=== PATIENT | male | born 1945 | race Caucasian/White ===

== ENCOUNTER 2017-06-20 10:00 | Inpatient (IN) ==
[2017-06-20] MEDS ORDERED: Ipratropium/Albuterol Neb 3 ML IH ONE (10:18)
--- NOTE | 2017-06-20 10:58 | Emergency Department Note ---
Disposition Clinical Impression: Pneumonia Disposition: Admitted As Inpatient Condition: Fair Referrals: Danis Figueroa MD [Primary Care Provider] - Forms: ED Satisfaction Letter Time of Disposition: 12:13 ([facility] JO[facility]) URI/Sore Throat HPI - General Chief Complaint: ED Upper Respiratory Infection Stated Complaint: low oxygen Time Seen by Provider: 06/20/17 10:22 Source: patient Mode of arrival: ambulatory Limitations: no limitations Nursing Notes Reviewed: Yes Vital Signs Reviewed: Yes - History of Present Illness HPI Narrative: 71-year-old male shortness of breath cough congestion fever chills at home increasing weakness patient has been having some limited questions altered mental status patient presents to the emergency room with O2 sats history of 70 % at home cough green phlegm denies blurred vision double vision loss of vision diarrhea melena hematochezia or hematemesis patient states on just getting worse I think I got pneumonia Pt Subjective Complaint: fever, cough, nasal congestion Onset (ago): day(s) (2) Duration: constant Severity: mild Severity scale (1-10): 2 Improves with: nothing Worsens with: exertion If sputum, description: yellow Associated symptoms: Reports: fever, chills, nasal congestion, cough, shortness of breath. Denies: voice changes, myalgias, diaphoresis, headache, rhinorrhea, sore throat, stiff neck, chest pain, abdominal pain, nausea, vomiting, diarrhea , dysuria, rash, ear pain Treatments prior to arrival: acetaminophen, ibuprofen - Related Data Home Medications Medication Instructions Recorded Confirmed Albuterol Sulfate [Proair HFA] 2 puff IH Q4HR PRN 08/23/15 05/21/17 Esomeprazole Magnesium [Nexium] 40 mg PO DAILY 08/23/15 05/21/17 Hydrocodone/Acetaminophen [Welcome 1 tab PO TID PRN 08/23/15 05/21/17 7.5-325 Tablet] Simvastatin [Zocor] 40 mg PO HS 08/23/15 05/21/17 Tiotropium [Spiriva] 18 mcg IH DAILY 08/23/15 05/21/17 Carvedilol [Coreg] 6.25 mg PO BIDWM 01/05/16 05/21/17 Fluticasone/Salmeterol [Advair 2 puff IN DAILY 01/05/16 05/21/17 250-50 Diskus] BuPROPion SR (12 HR) [Wellbutrin 100 mg PO BID 03/07/16 05/21/17 SR] Citalopram Hydrobromide [Celexa] 40 mg PO DAILY 03/07/16 05/21/17 Tamsulosin [Flomax] 0.4 mg PO DAILY 03/07/16 05/21/17 Tizanidine HCl [Zanaflex] 4 mg PO DAILY 03/07/16 05/21/17 Cetirizine HCl [All Day Allergy] 10 mg PO DAILY 09/26/16 05/21/17 Guaifenesin [Mucinex] 600 mg PO BID 09/26/16 05/21/17 Ipratropium/Albuterol Neb [Duoneb] 3 ml IH Q6HR 09/26/16 05/21/17 Losartan/Hydrochlorothiazide 1 each PO DAILY 09/26/16 05/21/17 [Hyzaar 100-12.5 Tablet] Montelukast [Singulair] 10 mg PO DAILY 09/26/16 05/21/17 Tizanidine HCl 2 mg PO HS 09/26/16 05/21/17 Gabapentin [Neurontin] 300 mg PO QID 05/21/17 05/21/17 Previous Rx's Medication Instructions Recorded Nicotine Patch [Nicoderm] 21 mg TD DAILY #30 patch.td24 05/21/17 Allergies Allergy/AdvReac Type Severity Reaction Status Date / Time morphine Allergy Anaphylaxis Verified 05/09/17 23:37 All systems ED: reviewed and negative except as stated. Review of Systems: As Per HPI Constitutional: Reports: fever, chills. Denies: weakness Eyes: Denies: eye pain ENT ED: Denies: ear pain Cardiovascular: Reports: dyspnea on exertion. Denies: chest pain, palpitations Respiratory: Reports: cough, dyspnea, wheezes, sputum production. Denies: hemoptysis Gastrointestinal: Denies: abdominal pain, nausea, vomiting, constipation Genitourinary: Denies: urgency, dysuria, frequency Musculoskeletal: Denies: back pain, neck pain Integumentary: Denies: rash Neurological: Reports: weakness. Denies: headache Psychiatric: Denies: anxiety Endocrine: Reports: fatigue Hematological/Lymphatic: Denies: easy bleeding Allergic/Immunologic: Denies: facial swelling URI PMH - Past Medical History Medical history: Reports: aortic aneurysm, arthritis, asthma, cancer, COPD, coronary artery disease, GERD, hyperlipidemia, hypertension, malignancy, myocardial infarction, renal disease, TIA, other Surgical history: Reports: other Psychiatric history: Reports: anxiety, depression - Social History Smoking Status: Current every day smoker Alcohol use: Reports: none Drug use: Reports: none Physical Exam - General Limitations: no limitations General appearance: alert, in no apparent distress - Head Head exam: atraumatic, normocephalic, normal inspection - Eye Eye exam: Present: normal appearance, PERRL, EOMI - ENT ENT exam: normal exam, normal oropharynx, mucous membranes moist, TM's normal bilaterally, normal external ear exam - Neck Neck exam: Present: normal inspection, full ROM, trachea midline - Chest Chest inspection: Present: normal inspection, symmetric chest wall rise - Respiratory Respiratory exam: Present: normal lung sounds bilaterally, wheezes. Absent: respiratory distress - Cardiovascular Cardiovascular exam: Present: regular rate, normal rhythm, normal heart sounds - Abdominal Exam Abdominal exam: Present: soft, Non-Tender, normal bowel sounds, mass, pulsatile mass - Extremities Exam Extremities exam: Present: normal inspection, full ROM, normal capillary refill. Absent: tenderness - Expanded Lower Extremity Exam Gait: observed and normal - Back Exam Back exam: Present: normal inspection, full ROM. Absent: muscle spasm - Neurological Exam Neurological exam: Present: alert, oriented X3, CN II-XII intact, normal gait - Psychiatric Psychiatric exam: Present: normal affect, normal mood - Skin Skin exam: Present: warm, dry, intact, normal color Course Course Narrative: Patient was seen and evaluated septic workup was done on the patient the patient at this time showing No signs of overt sepsis patient was given breathing treatments and decongestant patient showing significant improvement still continues to have sats in the low 90s as result recommendations with pneumonia and him bringing up copious amounts of phlegm at this time patient will be admitted for observation services of Dr. Jasso for antibiosis Rocephin and Zithromax started in the Vital Signs Temperature 97.0 F L 06/20/17 10:17 Pulse Rate 87 06/20/17 10:17 Respiratory Rate 16 06/20/17 10:17 Blood Pressure 92/51 06/20/17 10:17 O2 Sat by Pulse Oximetry 89 06/20/17 10:17 Temperature 97.0 F L 06/20/17 10:17 Pulse Rate 77 06/20/17 11:47 Respiratory Rate 16 06/20/17 11:47 Blood Pressure 118/76 06/20/17 11:47 O2 Sat by Pulse Oximetry 92 06/20/17 11:47 Oxygen Delivery Oxygen Delivery Nasal Cannula Upper Respiratory Infection - Differential Diagnosis Differential Diagnosis: Likely: upper respiratory infection, other viral infection, bronchitis, influenza, pneumonia - Medical Records Medical records reviewed: Yes I reviewed the patient's medical records. - Lab Data Lab results reviewed: Yes I reviewed the patient's lab results. Result diagrams: 06/20/17 10:49 06/20/17 10:49 Lab Results 06/20/17 06/20/17 06/20/17 Range/Units 10:49 10:49 10:49 WBC 11.8 H (4.3-11.1) K/mcL RBC 3.86 L (4.19-5.50) M/mcL Hgb 11.9 L (12.9-16.9) g/dL Hct 35.6 L (37.5-50.1) % MCV 92.2 (83.0-100.0) fL MCH 30.8 (28.0-33.3) pg MCHC 33.4 (31.6-35.5) g/dL RDW 14.7 H (11.5-14.5) % Plt Count 212 (140-400) K/mcL MPV 9.8 (9.4-12.4) fL Immature Gran % 0.5 (0-4) % Seg Neutrophils % 87.1 % Lymphocytes % 6.1 % Monocytes % 5.9 % Eosinophils % 0.2 % Basophils % 0.2 % Neutrophils # 10.3 H (1.6-8.9) K/mcL Lymphocytes # 0.7 (0.6-4.6) K/mcL Monocytes # 0.7 (0.0-1.3) K/mcL Eosinophils # 0.0 (0.0-0.6) K/mcL Basophils # 0.0 (0.0-0.2) K/mcL APTT 31.0 (26.0-36.0) Seconds Sodium 136 (136-145) mEq/L Potassium 4.0 (3.5-4.5) mEq/L Chloride 99 (98-109) mEq/L Carbon Dioxide 27 (19-29) mEq/L BUN 29 H (8-26) mg/dL Creatinine 1.53 H (0.72-1.25) mg/dL Est GFR ( Amer) 54 L (> 60) Est GFR (Non-Af Amer) 45 L (> 60) BUN/Creatinine Ratio 19 (6-26) Glucose 145 H (70-99) mg/dL Calculated Osmolality 290 (280-300) Calcium 9.4 (8.6-10.8) mg/dL Troponin I (0-0.03) ng/mL B-Natriuretic Peptide (0-100) pg/mL Lipase 7 L (8-78) Units/L 06/20/17 06/20/17 Range/Units 10:49 10:49 WBC (4.3-11.1) K/mcL RBC (4.19-5.50) M/mcL Hgb (12.9-16.9) g/dL Hct (37.5-50.1) % MCV (83.0-100.0) fL MCH (28.0-33.3) pg MCHC (31.6-35.5) g/dL RDW (11.5-14.5) % Plt Count (140-400) K/mcL MPV (9.4-12.4) fL Immature Gran % (0-4) % Seg Neutrophils % % Lymphocytes % % Monocytes % % Eosinophils % % Basophils % % Neutrophils # (1.6-8.9) K/mcL Lymphocytes # (0.6-4.6) K/mcL Monocytes # (0.0-1.3) K/mcL Eosinophils # (0.0-0.6) K/mcL Basophils # (0.0-0.2) K/mcL APTT (26.0-36.0) Seconds Sodium (136-145) mEq/L Potassium (3.5-4.5) mEq/L Chloride (98-109) mEq/L Carbon Dioxide (19-29) mEq/L BUN (8-26) mg/dL Creatinine (0.72-1.25) mg/dL Est GFR ( Amer) (> 60) Est GFR (Non-Af Amer) (> 60) BUN/Creatinine Ratio (6-26) Glucose (70-99) mg/dL Calculated Osmolality (280-300) Calcium (8.6-10.8) mg/dL Troponin I 0.01 (0-0.03) ng/mL B-Natriuretic Peptide 32 (0-100) pg/mL Lipase (8-78) Units/L - Radiology Data Radiology results reviewed: Yes I reviewed the patient's radiology results. ITS Impressions Chest X-Ray 06/20/17 10:17 IMPRESSION: New right greater than left bibasilar infiltrate suspicious for pneumonia. Aspiration is a consideration. D/ / Perfecto Yo MD / Perfecto Yo MD Interpreting Provider: Perfecto Yo MD - EKG Data EKG attestation: Yes I reviewed and interpreted this EKG. EKG results narrative: Sinus rhythm right bundle branch block anterior septal infarct old rate 86 AK 176 QRS 154 QT 382 access -75 Critical Care Time Critical Care Time: Yes Total Critical Care Time: 15 Attestation: Critical care performed: 15 minutes as a result of the patient being hypoxic upon presentation and improving post-aerosol and oxygen being applied to the patient patient continues to [place] low oxygen sat on 2 L despite aerosol treatments and chest x-ray showing pneumonia patient be admitted IV antibiotics Time is exclusive of separately billable procedures. Time includes: direct patient care, patient reassessment, coordination of patient care, interpretation of data (laboratory data, radiology data, and respiratory data), review of patient's medical records, medical consultation and documentation of patient care. Procedures included in critical care time: Procedures excluded from critical care time:
[2017-06-20 11:07] LABS: Basophils % 0.2 %; Eosinophils % 0.2 %; Hematocrit 35.6 % (37.5-50.1); Hemoglobin 11.9 g/dL (12.9-16.9); Immature Granulocytes % 0.5 % (0-4); Lymphocytes # 0.7 K/mcL (0.6-4.6); Lymphocytes % 6.1 %; Mean Corpuscular HGB Conc 33.4 g/dL (31.6-35.5); Mean Corpuscular Hemoglobin 30.8 pg (28.0-33.3); Mean Corpuscular Volume 92.2 fL (83.0-100.0); Mean Platelet Volume 9.8 fL (9.4-12.4); Monocytes # 0.7 K/mcL (0.0-1.3); Monocytes % 5.9 %; Neutrophils # 10.3 K/mcL (1.6-8.9); Platelet Count 212 K/mcL (140-400); Red Blood Count 3.86 M/mcL (4.19-5.50); Red Cell Distribution Width 14.7 % (11.5-14.5); Segmented Neutrophils % 87.1 %
[2017-06-20] MEDS ORDERED: Azithromycin 500 MG in D5% in Water 250 ML IVPB ONE (11:17)
[2017-06-20 11:22] LABS: Calcium 9.4 mg/dL (8.6-10.8)
[2017-06-20] MEDS ORDERED: Acetaminophen 325 MG TABLET PO PRN ×2 (13:22→13:33)
[2017-06-20] MEDS ORDERED: Ibuprofen 400 MG TABLET PO PRN ×2 (13:22→13:33)
[2017-06-20] MEDS ORDERED: *HR* HYDROcodone/Acet 7.5/325 mg TABLET PO PRN (13:22)
[2017-06-20] MEDS ORDERED: Naloxone 0.4 MG/ML INJ IVP PRN ×2 (13:22→13:33)
[2017-06-20] MEDS ORDERED: Gabapentin 300 MG CAPSULE PO SCH (13:22)
--- NOTE | 2017-06-20 14:06 | Internal Med History&Physical ---
Date of Encounter: 06/20/17 Time of Encounter: 14:06 Assessment and Plan (1) Pneumonia Current visit: Yes Status: Acute Patient is admitted with bibasilar pneumonia, right is worse than left. He has additional findings of leukocytosis, fever, hypoxia, acute confusion and comorbidities of having COPD, CAD, allergies. Blood cultures were drawn in the emergency room. They started Zithromax and Rocephin. He is requiring oxygen. Through the night he will be having his CPAP machine. Qualifiers: Pneumonia type: due to unspecified organism Laterality: bilateral Lung location: lower lobe of lung Qualified Code(s): J18.9 - Pneumonia, unspecified organism (2) COPD (chronic obstructive pulmonary disease) Current visit: Yes Status: Acute He has exacerbation of his chronic COPD with wheezing, hypoxia and acute pneumonia. He will be requiring oxygen. He will have a CPAP machine to use. Consideration for adding steroids as well. We will continue his nebulizer treatments and inhalers Qualifiers: COPD type: COPD with acute exacerbation Qualified Code(s): J44.1 - Chronic obstructive pulmonary disease with (acute) exacerbation (3) Acute kidney injury superimposed on chronic kidney disease Current visit: Yes Status: Acute He has a history chronic kidney disease now with acute kidney injury with increase in his creatinine to 1.53, this is above his typical baseline. This may be from his acute infection. May be from prerenal etiology. IV fluids will be given. Follow-up has been arranged. (4) Hypertension Current visit: Yes Status: Acute Patient has a history of hypertension. He has had relative hypotension though with blood pressure typically in the 90s. We will continue to monitor. Consideration for septicemia. Qualifiers: Hypertension type: essential hypertension Qualified Code(s): I10 - Essential (primary) hypertension (5) Coronary artery disease Current visit: Yes Status: Chronic Known coronary artery disease. Does not appear to have any chest pain/angina with this or acute EKG changes. We will monitor. Qualifiers: Coronary Disease-Associated Artery/Lesion type: [place] artery [place] vs. transplanted heart: [place] heart Associated angina: without angina Qualified Code(s): I25.10 - Atherosclerotic heart disease of [place] coronary artery without angina pectoris (6) Tobacco use Current visit: Yes Status: Chronic Chronic history of tobacco use for many years. He has decreased his use recently because of nicotine patch. We will continue with tobacco cessation. (7) Sleep apnea Current visit: Yes Status: Chronic He will use his CPAP machine at nighttime. Qualifiers: Sleep apnea type: obstructive Qualified Code(s): G47.33 - Obstructive sleep apnea (adult) (pediatric) (8) Radicular pain of right lower extremity Current visit: Yes Status: Chronic History of right lower extremity radicular pain. He has had previous back surgery. 2 weeks ago he had epidural steroid injection which was helpful. He was due to have another epidural steroid injection today but he was too ill. (9) DVT prophylaxis Current visit: Yes Status: Acute We will do DVT prophylaxis with [facility] Internal Medicine - H&P: HPI Chief complaint: reports that he is here with a lung infection Admitted From: Emergency Dept Plans for Post Hospital Care: Home History of present illness: Mr. Partida is a 71 year old male who is a smoker and has COPD, CAD, hypertension, multiple other medical problems who became ill over the past few days with cough, increased sputum production, increased respiratory rate and has become confused at times. His noted that his saturation this morning was 77% and his pulse was 120. He has also been shaking with chills. He is a long time smoker of a pack of cigarettes per day, but since using a nicotine patch over the past couple of weeks his tobacco use has become more rare. He has not had any hemoptysis. He has had no recent travel. His states that about every 6 weeks he comes down with some type of infection. No history obtainable from the patient as he has had confusion and somnolence. Information was obtained from his . Past Med Surg Social Fam HX - Past Medical History Medical history: aortic aneurysm, arthritis, asthma, cancer, COPD, coronary artery disease, GERD, hyperlipidemia, hypertension, malignancy, myocardial infarction, renal disease, TIA, other Psychiatric history: anxiety, depression - Past Surgical History Surgical History: orthopedic, other (Previous back surgery), other (Angioplasty 2005, partial nephrectomy 2004, lumbar laminectomy in 1993, abdominal aortic aneurysm endograft placement 2008, right kidney mass removed in 2016) - Social History Smoking Status: Current every day smoker Smokeless Tobacco Status: No Alcohol use: none Drug use: none - Family History Father Adopted: Yes Family Member Ethnicity: Non- Living Status: Hx Family Cardiac Disorders: Yes (self, brother,mother) Hx Family Respiratory Disorders: Yes (self, father) Hx Family Cancer: Yes (self,father,brother) Hx Family GI Disorders: Yes (self) Hx Family Endocrine Disorder: No Hx Family Neuromuscular Disorders: No Hx Family Neurologic Disorders: Yes (self,mother) Hx Family HEENT Disorders: No Hx Family Autoimmune Disorders: No Internal Medicine - H&P: Meds Albuterol Sulfate [Proair HFA] 2 puff IH Q4HR PRN 08/23/15 [History] Esomeprazole Magnesium [Nexium] 40 mg PO DAILY 08/23/15 [History] Hydrocodone/Acetaminophen [[place] 7.5-325 Tablet] 1 tab PO TID PRN 08/23/15 [ History] Simvastatin [Zocor] 40 mg PO HS 08/23/15 [History] Tiotropium [Spiriva] 18 mcg IH DAILY 08/23/15 [History] Carvedilol [Coreg] 6.25 mg PO BIDWM 01/05/16 [History] Fluticasone/Salmeterol [Advair 250-50 Diskus] 2 puff IN DAILY 01/05/16 [History] BuPROPion SR (12 HR) [Wellbutrin SR] 100 mg PO BID 03/07/16 [History] Citalopram Hydrobromide [Celexa] 40 mg PO DAILY 03/07/16 [History] Tamsulosin [Flomax] 0.4 mg PO DAILY 03/07/16 [History] Tizanidine HCl [Zanaflex] 4 mg PO DAILY 03/07/16 [History] Cetirizine HCl [All Day Allergy] 10 mg PO DAILY 09/26/16 [History] Guaifenesin [Mucinex] 600 mg PO BID 09/26/16 [History] Ipratropium/Albuterol Neb [Duoneb] 3 ml IH Q6HR 09/26/16 [History] Losartan/Hydrochlorothiazide [Hyzaar 100-12.5 Tablet] 1 each PO DAILY 09/26/16 [ History] Montelukast [Singulair] 10 mg PO DAILY 09/26/16 [History] Tizanidine HCl 2 mg PO HS 09/26/16 [History] Gabapentin [Neurontin] 300 mg PO QID 05/21/17 [History] Nicotine Patch [Nicoderm] 21 mg TD DAILY #30 patch.td24 05/21/17 [Rx] Allergies morphine Allergy (Verified 05/09/17 23:37) Anaphylaxis ROS unobtainable: due to mental status (Patient sometimes is mumbling, he is confused and disoriented and generally has his eyes closed), other (Review of systems basically obtained from his and ER records) - Constitutional Constitutional: chills, fatigue, fever(s), weakness, no night sweats - EENT Eyes: no change in vision, no discharge Ears: no ear discharge, no ear pain Nose, mouth and throat: no epistaxis, no sinus pain, no sore throat, no throat swelling - Cardiovascular Cardiovascular ROS IM: dyspnea, dyspnea on exertion, no chest pain, no irregular heart rhythm, no palpitations, no syncope - Respiratory Respiratory: cough (Sputum production increased recently no hemoptysis), dyspnea , dyspnea on exertion, wheezing, snoring, chest congestion, excessive phlegm production, change in phlegm color - Gastrointestinal Gastrointestinal: no abdominal pain, no change in stool character, no constipation, no diarrhea, no hematochezia, no melena - Genitourinary Genitourinary ROS male: no dysuria, no flank pain, no urinary frequency - Musculoskeletal Musculoskeletal ROS IM: no arthralgias, no muscle weakness Additional comments: Had recent epidural steroids for radicular pain in the right lower extremity - Integumentary Integumentary IM: no rash, no skin ulcer - Neurological Neurological ROS: confusion, radicular pain (Chronic radicular pain in the right lower extremity with burning sensation in his leg and knee area), no focal weakness, no loss of vision - Psychiatric Psychiatric: no auditory hallucinations, no visual hallucinations - Hematologic/Lymphatic Hematologic/Lymphatic: no easy bruising, no lymphadenopathy - Constitutional Vitals: Temp Pulse Resp BP Pulse Ox 98.2 F 89 16 99/62 87 06/20/17 13:22 06/20/17 13:22 06/20/17 13:41 06/20/17 13:41 06/20/17 13:22 General appearance: Present: A&O X 0, disheveled. Absent: answers questions appropriately Exam: Patient is lying at 45 degree angle. He moderately sever respiratory distress. General his eyes are closed. He cannot tell me his date or age, he can tell me his address. He thinks he has been in the hospital for 2 or 3 days, not just a few hours. I really cannot get much more information than that. He is having very impressive rigors. - Head Head exam: Present: atraumatic - Eye Eye exam: Present: EOMI. Absent: scleral icterus Pupils: Present: PERRL - ENT ENT exam: Present: mucous membranes moist, TM's normal bilaterally - Neck Neck exam general surgery: Absent: lymphadenopathy, tenderness, nuchal rigidity , thyromegaly - Respiratory Respiratory exam: Present: accessory muscle use, decreased breath sounds, prolonged expiratory phase, rhonchi Additional comments: Scattered rhonchi bilaterally. The right is worse than left. Diminished breath sounds at the bases. Audible crackles and wheezing. - Cardiovascular Cardiovascular exam: Present: distant heart sounds, RRR, +S1, +S2 - GI/Abdominal GI/Abdominal exam: Present: normal bowel sounds, soft, no peritoneal signs. Absent: firm, guarding, hepatomegaly, mass, tenderness - Extremities Exam Extremities exam: Present: normal capillary refill, warm. Absent: calf tenderness, pedal edema, tenderness Additional comments: He is having rigors involving his upper extremities - Neurological Exam Neurological exam: Present: altered (As in history of present illness), strengths equal and symetr throughout. Absent: alert, oriented X3, no focal deficits, facial droop, speech deficit Internal Med - H&P Results - Labs CBC & Chem 7: 06/20/17 10:49 06/20/17 10:49 Labs: Elevated white blood cell count. Increased creatinine above baseline. - Diagnostic Studies Chest x-ray Additional comments: Chest x-ray shows bibasilar infiltrates, right worse than left
[2017-06-20] MEDS: 0.9 % Sodium Chloride 1,000 ML IVC SCH (15:09)
[2017-06-20] MEDS ORDERED: Ipratropium/Albuterol Neb 3 ML IH SCH (16:00)
[2017-06-20] MEDS: Ipratropium/Albuterol Neb 3 ML IH SCH ×3 (17:01→23:31)
[2017-06-20] MEDS: Gabapentin 300 MG CAPSULE PO SCH ×2 (17:01→20:21)
[2017-06-20] MEDS ORDERED: Mag Hydrox/Al Hydrox/Simeth 30 ML UDC PO STA (18:05)
[2017-06-20] MEDS ORDERED: Mag Hydrox/Al Hydrox/Simeth 30 ML UDC PO PRN (19:40)
[2017-06-20] MEDS: BuPROPion SR (12 HR) 100 MG TABLET PO SCH (20:21)
[2017-06-20] MEDS: tiZANidine 4 MG TABLET PO SCH (20:22)
[2017-06-20] MEDS ORDERED: tiZANidine 4 MG TABLET PO SCH (21:00)
[2017-06-20] MEDS ORDERED: BuPROPion SR (12 HR) 100 MG TABLET PO SCH (21:00)
[2017-06-21] MEDS: 0.9 % Sodium Chloride 1,000 ML IVC SCH ×3 (04:52→20:55)
[2017-06-21] MEDS: *HR* Enoxaparin 40 MG/0.4 ML SYRINGE SQ SCH (05:08)
[2017-06-21] MEDS: Ipratropium/Albuterol Neb 3 ML IH SCH ×3 (05:10→17:45)
[2017-06-21 05:28] LABS: Basophils % 0.1 %; Eosinophils % 0.3 %; Hematocrit 31.4 % (37.5-50.1); Hemoglobin 10.3 g/dL (12.9-16.9); Immature Granulocytes % 0.9 % (0-4); Lymphocytes # 1.1 K/mcL (0.6-4.6); Lymphocytes % 11.8 %; Mean Corpuscular HGB Conc 32.8 g/dL (31.6-35.5); Mean Corpuscular Hemoglobin 30.3 pg (28.0-33.3); Mean Corpuscular Volume 92.4 fL (83.0-100.0); Mean Platelet Volume 10.1 fL (9.4-12.4); Monocytes # 0.7 K/mcL (0.0-1.3); Monocytes % 8.2 %; Platelet Count 194 K/mcL (140-400); Red Cell Distribution Width 14.9 % (11.5-14.5); Segmented Neutrophils % 78.7 %
[2017-06-21 05:30] LABS: INR 1.3; Prothrombin Time 14.3 Seconds (9.4-12.1)
[2017-06-21 05:31] LABS: Activated Partial Thrombo Time 29.4 Seconds (26.0-36.0)
[2017-06-21 05:41] LABS: Potassium 3.9 mEq/L (3.5-4.5)
[2017-06-21] MEDS: tiZANidine 4 MG TABLET PO SCH ×2 (08:50→20:58)
[2017-06-21] MEDS: Loratadine 10 MG TABLET PO SCH (08:51)
[2017-06-21] MEDS: Gabapentin 300 MG CAPSULE PO SCH ×4 (08:51→20:58)
[2017-06-21] MEDS: BuPROPion SR (12 HR) 100 MG TABLET PO SCH ×2 (08:51→20:58)
[2017-06-21] MEDS: Losartan/HCTZ 50-12.5 TABLET PO SCH (08:52)
[2017-06-21] MEDS: Nicotine 21 MG PATCH.TD24 TD SCH (08:52)
[2017-06-21] MEDS ORDERED: tiZANidine 4 MG TABLET PO SCH (09:00)
[2017-06-21] MEDS ORDERED: Losartan/HCTZ 50-12.5 TABLET PO SCH (09:00)
[2017-06-21] MEDS ORDERED: Nicotine 21 MG PATCH.TD24 TD SCH (09:00)
[2017-06-21] MEDS ORDERED: Loratadine 10 MG TABLET PO SCH (09:00)
--- NOTE | 2017-06-21 11:53 | Internal Med Progress Note ---
Date of Encounter: 06/21/17 Time of Encounter: 11:48 - Assessment and plan (1) Pneumonia Current Visit: Yes Status: Acute Assessment and plan: Clinically his pneumonia is improved. Fever is gone, white blood cell count is normal, his confusion has resolved. His saturations are good. Continue current treatment. We will try to wean off the oxygen during the day. Uses oxygen at night with his CPAP Qualifiers: Pneumonia type: due to unspecified organism Laterality: bilateral Lung location: lower lobe of lung Qualified Code(s): J18.9 - Pneumonia, unspecified organism (2) COPD (chronic obstructive pulmonary disease) Current Visit: Yes Status: Acute Assessment and plan: His breathing is much better today. We are trying to wean him to room air during the day. No significant sputum production. His extreme hypoxia is cleared. Qualifiers: COPD type: COPD with acute exacerbation Qualified Code(s): J44.1 - Chronic obstructive pulmonary disease with (acute) exacerbation (3) Acute kidney injury superimposed on chronic kidney disease Current Visit: Yes Status: Acute Assessment and plan: Creatinine has improved. Continue IV fluids as his blood pressure is low. (4) Hypertension Current Visit: Yes Status: Chronic Assessment and plan: His chronic hypertension, but his blood pressures below since admission in the 90s. Currently it is 85 systolic. He is perfusing well, he is awake and alert. He states when his blood pressure is low at home he holds his Hyzaar. We are holding his hypertensive medication. We are continuing his IV fluids. Qualifiers: Hypertension type: essential hypertension Qualified Code(s): I10 - Essential (primary) hypertension (5) Coronary artery disease Current Visit: Yes Status: Chronic Assessment and plan: No angina or CHF. Normal sinus rhythm. Qualifiers: Coronary Disease-Associated Artery/Lesion type: [place] artery [place] vs. transplanted heart: [place] heart Associated angina: without angina Qualified Code(s): I25.10 - Atherosclerotic heart disease of [place] coronary artery without angina pectoris (6) Tobacco use Current Visit: Yes Status: Chronic (7) Sleep apnea Current Visit: Yes Status: Chronic Assessment and plan: He wears his CPAP machine at nighttime with oxygen Qualifiers: Sleep apnea type: obstructive Qualified Code(s): G47.33 - Obstructive sleep apnea (adult) (pediatric) (8) Radicular pain of right lower extremity Current Visit: Yes Status: Chronic Assessment and plan: He states his radicular pain is about 60% improved since his epidural injection 2 weeks ago. Most of his burning and pain is at the proximal right knee area (9) DVT prophylaxis Current Visit: Yes Status: Acute - Subjective Interval history: Patient feels much better today. He does not remember much of yesterday. He denies any cardiac type chest pain. He states his breathing is much better. Not getting any significant sputum up. His GI distress that he had last night is now gone after one dose of liquid antacid. He denies a cardiac type chest pain, palpitations, GI or symptoms. Appetite has been good. - Constitutional Vitals: Temp Pulse Resp BP Pulse Ox 97.5 F L 68 16 99/62 94 06/21/17 07:27 06/21/17 07:27 06/21/17 07:27 06/21/17 07:27 06/21/17 07:27 General appearance: Present: A&O X 3, no acute distress, answers questions appropriately Exam: Patient looks much better today. He is awake and alert, he is carrying on normal conversation. He does not remember yesterday. He is oriented well now. - Respiratory Respiratory exam: Present: decreased breath sounds Additional comments: Diminished breath sounds throughout but clear. No respiratory distress. No audible crackles or rhonchi or wheezing as he had yesterday - Cardiovascular Cardiovascular exam: Present: distant heart sounds, RRR Additional comments: Very distant heart tones. Cannot appreciate murmur or gallop. - GI/Abdominal GI/Abdominal exam: Present: soft. Absent: tenderness - Extremities Exam Extremities exam: Absent: calf tenderness, pedal edema, tenderness - Neurological Exam Neurological exam: Present: alert, CN II-XII intact, oriented X3 Internal Medicine: Result - Labs CBC & Chem 7: 06/21/17 04:46 06/21/17 04:46 Labs: Short CBC 06/21/17 Range/Units 04:46 WBC 8.9 (4.3-11.1) K/mcL Hgb 10.3 L D (12.9-16.9) g/dL Hct 31.4 L (37.5-50.1) % Plt Count 194 (140-400) K/mcL Neutrophils # 7.0 (1.6-8.9) K/mcL BMP 06/21/17 04:46 Sodium 137 Potassium 3.9 Chloride 101 Carbon Dioxide 25 BUN 36 H Creatinine 1.50 H Glucose 103 H Calcium 9.0 White blood cell count is now normal. His creatinine is improved. Electrolytes are normal. - ABG Interpretation ABG results: PT/INR, D-dimer PT 14.3 Seconds (9.4-12.1) H 06/21/17 04:46 Consult Discharge Plan - Plan Referrals: Danis Figueroa MD [Primary Care Provider] -
[2017-06-21] MEDS ORDERED: Azithromycin 500 MG in D5% in Water 250 ML IVPB SCH (12:00)
[2017-06-21] MEDS: Azithromycin 500 MG in D5% in Water 250 ML IVPB SCH (15:07)
--- NOTE | 2017-06-21 15:25 | Electrocardiograph Report ---
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
[2017-06-21] MEDS: *HR* HYDROcodone/Acet 7.5/325 mg TABLET PO PRN (17:48)
[2017-06-22] MEDS: Ipratropium/Albuterol Neb 3 ML IH SCH ×5 (01:00→23:55)
[2017-06-22 05:46] LABS: Basophils % 0.1 %; Eosinophils # 0.1 K/mcL (0.0-0.6); Eosinophils % 0.9 %; Hematocrit 30.1 % (37.5-50.1); Immature Granulocytes % 0.7 % (0-4); Lymphocytes % 12.3 %; Mean Corpuscular HGB Conc 33.2 g/dL (31.6-35.5); Mean Corpuscular Hemoglobin 30.6 pg (28.0-33.3); Mean Platelet Volume 10.2 fL (9.4-12.4); Monocytes # 0.7 K/mcL (0.0-1.3); Monocytes % 8.4 %; Neutrophils # 6.2 K/mcL (1.6-8.9); Platelet Count 192 K/mcL (140-400); Red Blood Count 3.27 M/mcL (4.19-5.50); Red Cell Distribution Width 14.6 % (11.5-14.5); Segmented Neutrophils % 77.6 %
[2017-06-22 05:59] LABS: BUN/Creatinine Ratio 26 (6-26); Blood Urea Nitrogen 25 mg/dL (8-26); Carbon Dioxide 24 mEq/L (19-29); Chloride 107 mEq/L (98-109); Glucose 88 mg/dL (70-99); Osmolality,Calculated 294 (280-300); Potassium 3.9 mEq/L (3.5-4.5); Sodium 140 mEq/L (136-145); eGFR For African Americans > 60 (> 60); eGFR For Non-African Americans > 60 (> 60)
[2017-06-22] MEDS: *HR* Enoxaparin 40 MG/0.4 ML SYRINGE SQ SCH (06:44)
[2017-06-22] MEDS: *HR* HYDROcodone/Acet 7.5/325 mg TABLET PO PRN ×3 (06:45→23:55)
[2017-06-22] MEDS: BuPROPion SR (12 HR) 100 MG TABLET PO SCH ×2 (08:37→21:43)
[2017-06-22] MEDS: Loratadine 10 MG TABLET PO SCH (08:37)
[2017-06-22] MEDS: Gabapentin 300 MG CAPSULE PO SCH ×4 (08:38→21:43)
[2017-06-22] MEDS: Losartan/HCTZ 50-12.5 TABLET PO SCH (08:38)
[2017-06-22] MEDS: tiZANidine 4 MG TABLET PO SCH ×2 (08:38→21:43)
[2017-06-22] MEDS: Nicotine 21 MG PATCH.TD24 TD SCH (08:39)
--- NOTE | 2017-06-22 10:52 | Internal Med Progress Note ---
Date of Encounter: 06/23/17 Time of Encounter: 10:48 - Assessment and plan (1) Pneumonia Current Visit: Yes Status: Acute Assessment and plan: Pt on Community acquired Pneumonia treatment and is doing well . plan is to continue present regimen and switch to oral in few days or at the time of discharge. He continues to improve and if able to tolerate food , with stable breathing he should be ready for discharge in few days . Qualifiers: Pneumonia type: due to unspecified organism Laterality: bilateral Lung location: lower lobe of lung Qualified Code(s): J18.9 - Pneumonia, unspecified organism (2) COPD (chronic obstructive pulmonary disease) Current Visit: Yes Status: Acute Assessment and plan: He is on breathing tretment which will be conitnued Advised to quite tobaco which he still smokes ,half pack a day .He is on nicotine patch at the present time. N/C oxygen off at the present time . Increase ambulation. Further assessment would be needed for oxygen needs if any . Doing better at the present time .. Qualifiers: COPD type: COPD with acute lower respiratory infection Qualified Code(s): J44.0 - Chronic obstructive pulmonary disease with acute lower respiratory infection (3) Hypotension Current Visit: Yes Status: Acute Assessment and plan: blood pressure was noted to be low . His meds were held and IV fluid given He is doing well and back to his oral blood pressures. IV fluid will be stopped and medications slowly reintroduced. Qualifiers: Hypotension type: other hypotension type Qualified Code(s): I95.89 - Other hypotension (4) Renal insufficiency Current Visit: Yes Status: Acute Assessment and plan: noted to have increase creatinine from his base line . He has responded well to iV fluids . Repeat labs back to his base line Increase oral intake - Time Spent With Patient 25 - 35 minutes - Subjective Interval history: First time seen ,71 y w male with hex f COPD ,HTN admitted for SOB ,Pneumonia and renal insuffcincy and is doing very well . he is alert and oriented comfortably and not having having any SOB. His oxygenation was stopped after his pulse Ox was 93 percent which was in low last night . He denies any chest pain ,dizzyness or any pther complains . His is having some cough but feels much better and improved. He had low BP on admission , Meds were held and with fluid intake has done well . - Constitutional Vitals: Temp Pulse Resp BP Pulse Ox 98.3 F 73 18 131/76 92 06/22/17 07:19 06/22/17 07:19 06/22/17 07:19 06/22/17 07:19 06/22/17 07:19 General appearance: Present: A&O X 3, pleasant, answers questions appropriately - Respiratory Respiratory exam: Present: decreased breath sounds. Absent: accessory muscle use, chest wall tenderness, respiratory distress, stridor, wheezes, tachypnea - Cardiovascular Cardiovascular exam: Present: distant heart sounds. Absent: diastolic murmur, systolic murmur Additional comments: Pulses are equal on both sides no pedal edema - Expanded Cardiovascular Exam Peripheral pulses: 1+: Dorsalis Pedis (L) PM, Dorsalis Pedis (R) PM - GI/Abdominal GI/Abdominal exam: Present: normal bowel sounds, soft. Absent: tenderness - Other Additional findings: No pedal edema noted. pedal Pulses equally both side Internal Medicine: Result - Labs CBC & Chem 7: 06/22/17 05:15 06/22/17 05:15 Labs: Short CBC 06/22/17 Range/Units 05:15 WBC 8.1 (4.3-11.1) K/mcL Hgb 10.0 L (12.9-16.9) g/dL Hct 30.1 L (37.5-50.1) % Plt Count 192 (140-400) K/mcL Neutrophils # 6.2 (1.6-8.9) K/mcL BMP 06/22/17 05:15 Sodium 140 Potassium 3.9 Chloride 107 Carbon Dioxide 24 BUN 25 D Creatinine 0.98 Glucose 88 Calcium 9.0 - ABG Interpretation ABG results: PT/INR, D-dimer PT 14.3 Seconds (9.4-12.1) H 06/21/17 04:46 - VTE Deep Vein Thrombosis/Pulmonary Embolism Present on Admission: Yes Consult Discharge Plan - Plan Referrals: Danis Figueroa MD [Primary Care Provider] -
[2017-06-22] MEDS: Azithromycin 500 MG in D5% in Water 250 ML IVPB SCH (12:51)
[2017-06-23] MEDS: *HR* Enoxaparin 40 MG/0.4 ML SYRINGE SQ SCH (06:33)
[2017-06-23] MEDS: Ipratropium/Albuterol Neb 3 ML IH SCH ×4 (06:34→22:57)
--- NOTE | 2017-06-23 08:41 | Internal Med Progress Note ---
Date of Encounter: 06/23/17 Time of Encounter: 08:39 - Assessment and plan (1) Pneumonia Current Visit: Yes Status: Acute Assessment and plan: Patient has responded well and antibiotics. His blood cultures have been negative. He did have some sputum production and today however since he has been on antibiotics for the last 48 hours sputum was not sent for any cultural sensitivity. Plan is to continue his antibiotics and if he continues to improve he could go home tomorrow. His pulse ox is 93% on 2 L. I have asked the nursing staff to have him walk to assess his oxygenation needs. Qualifiers: Pneumonia type: due to unspecified organism Laterality: bilateral Lung location: lower lobe of lung Qualified Code(s): J18.9 - Pneumonia, unspecified organism (2) COPD (chronic obstructive pulmonary disease) Current Visit: Yes Status: Acute Assessment and plan: COPD is stable. He continues to get a breathing treatment and is coming back to his baseline. Qualifiers: COPD type: COPD with acute lower respiratory infection Qualified Code(s): J44.0 - Chronic obstructive pulmonary disease with acute lower respiratory infection (3) Hypotension Current Visit: Yes Status: Acute Assessment and plan: His hypertension is resolved. Blood pressure medication have been reintroduced slowly. He is tolerating his medications. Qualifiers: Hypotension type: other hypotension type Qualified Code(s): I95.89 - Other hypotension (4) Renal insufficiency Current Visit: Yes Status: Acute Assessment and plan: Renal insufficiency resolved. - Subjective Interval history: Patient seen as follow-up. Slept well. At the present time he feels much better from yesterday off from the day of admission. There is no complaining of shortness of breath. He is able to get up and walk around without any dizziness are any spells of cough. He has mildly productive cough no blood. No chest pains nausea or vomiting. No complaints of abdominal discomfort overall he feels much better and improved. - Constitutional Vitals: Temp Pulse Resp BP Pulse Ox 98.1 F 70 20 106/55 91 06/23/17 04:00 06/23/17 04:00 06/23/17 04:00 06/23/17 04:00 06/23/17 04:00 General appearance: Present: cooperative, A&O X 3, pleasant, answers questions appropriately - Neck Neck exam general surgery: Present: supple - Respiratory Respiratory exam: Absent: accessory muscle use, respiratory distress, rhonchi, stridor, wheezes, tachypnea Additional comments: Chest examination is no change from yesterday. Air mile crackled on} noted. Otherwise clear to auscultation. otherwise clear to auscultation.both sides. - Cardiovascular Cardiovascular exam: Present: RRR. Absent: gallop, JVD, tachycardia - GI/Abdominal GI/Abdominal exam: Present: soft. Absent: distended, mass, tenderness Internal Medicine: Result - Labs CBC & Chem 7: 06/22/17 05:15 06/22/17 05:15 - ABG Interpretation ABG results: PT/INR, D-dimer PT 14.3 Seconds (9.4-12.1) H 06/21/17 04:46 - VTE Deep Vein Thrombosis/Pulmonary Embolism Present on Admission: Yes Consult Discharge Plan - Plan Referrals: Danis Figueroa MD [Primary Care Provider] -
[2017-06-23] MEDS: Gabapentin 300 MG CAPSULE PO SCH ×4 (09:39→22:52)
[2017-06-23] MEDS: Loratadine 10 MG TABLET PO SCH (09:40)
[2017-06-23] MEDS: tiZANidine 4 MG TABLET PO SCH ×2 (09:40→22:51)
[2017-06-23] MEDS: *HR* HYDROcodone/Acet 7.5/325 mg TABLET PO PRN ×2 (09:41→16:52)
[2017-06-23] MEDS: BuPROPion SR (12 HR) 100 MG TABLET PO SCH ×2 (09:41→22:52)
[2017-06-23] MEDS: Nicotine 21 MG PATCH.TD24 TD SCH (09:42)
[2017-06-23] MEDS: Losartan/HCTZ 50-12.5 TABLET PO SCH (09:43)
[2017-06-23] MEDS: Azithromycin 500 MG in D5% in Water 250 ML IVPB SCH (12:36)
[2017-06-24] MEDS: *HR* Enoxaparin 40 MG/0.4 ML SYRINGE SQ SCH (05:09)
[2017-06-24] MEDS: Ipratropium/Albuterol Neb 3 ML IH SCH ×2 (05:09→13:28)
--- NOTE | 2017-06-24 08:59 | Discharge Summary ---
Date of Encounter: 06/25/17 Time of Encounter: 08:56 - Discharge Diagnosis (1) Pneumonia Priority: Primary Status: Acute Comments: pt was admitted with acute SOB and confusion . his Xray showed bi lateral infiltrate . Pt was admitted to acute floor and was treated for community acquired pneumonia . He responded well with medications and conservative treated with HHN nebulizer. At the present time he is ambulatory , no longer SOB and is back to his base line. Plan is to continue oral antibiotics for another 5 days Qualifiers: Pneumonia type: due to unspecified organism Laterality: bilateral Lung location: lower lobe of lung Qualified Code(s): J18.9 - Pneumonia, unspecified organism (2) COPD (chronic obstructive pulmonary disease) Priority: Secondary Status: Acute Comments: he has hx of COPD wich was also exacerbated due to his infection . Breathing treatment helped . h has some cough productive however back to his base line . Qualifiers: COPD type: COPD with acute lower respiratory infection Qualified Code(s): J44.0 - Chronic obstructive pulmonary disease with acute lower respiratory infection (3) Hypotension Priority: Secondary Status: Acute Comments: it was resolved with IV fludis and holding his blood pressure medications He is back to his normal BP and his medications has been reintroduced. Qualifiers: Hypotension type: other hypotension type Qualified Code(s): I95.89 - Other hypotension (4) Renal insufficiency Priority: Secondary Status: Acute Comments: resolved with IV fluids. - Discharge Medications Prescriptions: Doxycycline 100 mg PO BID #10 capsule Home Medications: Albuterol Sulfate [Albuterol Inhaler] 2 puff IH Q4HR PRN 08/23/15 [History] Esomeprazole Magnesium [Nexium] 40 mg PO DAILY 08/23/15 [History] Hydrocodone/Acetaminophen [[place] 7.5-325 Tablet] 1 tab PO TID PRN 08/23/15 [ History] Simvastatin [Zocor] 40 mg PO HS 08/23/15 [History] Tiotropium [Spiriva] 18 mcg IH DAILY 08/23/15 [History] Carvedilol [Coreg] 6.25 mg PO BIDWM 01/05/16 [History] Fluticasone/Salmeterol [Advair 250-50 Diskus] 2 puff IN DAILY 01/05/16 [History] BuPROPion SR (12 HR) [Wellbutrin SR] 100 mg PO BID 03/07/16 [History] Citalopram Hydrobromide [Celexa] 40 mg PO DAILY 03/07/16 [History] Tamsulosin [Flomax] 0.4 mg PO DAILY 03/07/16 [History] Tizanidine HCl [Zanaflex] 4 mg PO DAILY 03/07/16 [History] Cetirizine HCl [All Day Allergy] 10 mg PO DAILY 09/26/16 [History] Guaifenesin [Mucinex] 600 mg PO BID 09/26/16 [History] Ipratropium/Albuterol Neb [Duoneb] 3 ml IH Q6HR 09/26/16 [History] Losartan/Hydrochlorothiazide [Hyzaar 100-12.5 Tablet] 1 each PO DAILY 09/26/16 [ History] Montelukast [Singulair] 10 mg PO DAILY 09/26/16 [History] Tizanidine HCl 2 mg PO HS 09/26/16 [History] Gabapentin [Neurontin] 300 mg PO QID 05/21/17 [History] Nicotine Patch [Nicoderm] 21 mg TD DAILY #30 patch.td24 05/21/17 [Rx] Doxycycline 100 mg PO BID #10 capsule 06/24/17 [Rx] Allergies/Adverse Reactions: Allergies morphine Allergy (Verified 05/09/17 23:37) Anaphylaxis - Notes to Outpatient Provider At the time od admission he had mild increase in his white count which qucikely returend to normal . His creatinine was also high which came to his base line after hydration . Date of admission: 06/20/17 23:34 06/20/2017 Primary care physician: Danis Figueroa MD Discharging clinician: Bernice Davis Anticipated date of discharge: 06/24/17 - Patient Status Disposition: Home, Self-Care Condition: Good Overall status at discharge: patient is back to baseline - Discharge Instructions Instructions: Chronic Obstructive Pulmonary Disease (DC) Follow Up With: Danis Figueroa MD [Primary Care Provider] - 06/25/17 4:30 pm (follow up appointment) - Diet and Activity Activity: resume usual activities as tolerated Diet: regular diet Hospital course: Mr. Partida is a 71 year old male his hospital course was unremarkable . He improved with IV fluids and antibiotics. he is back to his normal self - Time Spent with Patient Total time spent providing and/or coordinating discharge services: - Constitutional Vitals: Temp Pulse Resp BP Pulse Ox 98.2 F 78 18 152/75 93 06/24/17 07:06 06/24/17 07:06 06/24/17 07:06 06/24/17 07:06 06/24/17 07:06 General appearance: Present: cooperative, A&O X 3, pleasant, answers questions appropriately - Head Head exam: Present: normal inspection - Eye Eye exam: Present: PERRL - ENT ENT exam: Present: normal exam - Respiratory Respiratory exam: Present: decreased breath sounds. Absent: chest wall tenderness Additional comments: chest decreased breath sounds boths sides mild rales at the bottom but his base line no wheeze noted - Cardiovascular Cardiovascular exam: Present: RRR. Absent: JVD - GI/Abdominal GI/Abdominal exam: Present: normal bowel sounds, soft. Absent: tenderness - VTE Deep Vein Thrombosis/Pulmonary Embolism Present on Admission: Yes
[2017-06-24] MEDS: BuPROPion SR (12 HR) 100 MG TABLET PO SCH (09:11)
[2017-06-24] MEDS: tiZANidine 4 MG TABLET PO SCH (09:12)
[2017-06-24] MEDS: Gabapentin 300 MG CAPSULE PO SCH ×2 (09:12→12:10)
[2017-06-24] MEDS: Nicotine 21 MG PATCH.TD24 TD SCH (09:13)
[2017-06-24] MEDS: Losartan/HCTZ 50-12.5 TABLET PO SCH (09:13)
[2017-06-24] MEDS: Loratadine 10 MG TABLET PO SCH ×2 (09:14→12:11)
[2017-06-24 11:15] VITALS: BP 117/68
[2017-06-24] MEDS: *HR* HYDROcodone/Acet 7.5/325 mg TABLET PO PRN (12:10)
[2017-06-24] MEDS: Azithromycin 500 MG in D5% in Water 250 ML IVPB SCH (12:12)
== END 2017-06-24 14:50 | disposition home or self-care (01) | DRG 190 ==
LOC: INPGRE 10:00 → EMEROOGRE 10:00 → INPGRE 13:41
PROVIDERS: ADMIT Family Medicine; ATTEND Family Medicine

== ENCOUNTER 2018-01-30 06:42 | Observation (INO) ==
[2018-01-30] MEDS ORDERED: Nitroglycerin 1 INCH/GM PACKET TP ONE (07:00)
[2018-01-30] MEDS ORDERED: Ipratropium/Albuterol Neb 3 ML IH ONE (07:01)
--- NOTE | 2018-01-30 07:08 | Emergency Department Note ---
Disposition Clinical Impression: COPD exacerbation Chest pain Qualifiers: Chest pain type: unspecified Qualified Code(s): R07.9 - Chest pain, unspecified Disposition: Transfer Short-Term Hosp Condition: Fair Referrals: Danis Figueroa MD [Primary Care Provider] - Forms: ED Satisfaction Letter Time of Disposition: 08:30 Chest Pain HPI - General Chief Complaint: ED Chest Pain Time Seen by Provider: 01/30/18 07:00 Source: patient, family, other Limitations: no limitations Vital Signs Reviewed: Yes Nursing Notes Reviewed: Yes - History of Present Illness HPI Narrative: midsternal CP and increasing SOB when got up this am. took 3 NTG AND full strentgh ASA. PAIN initially very severe , but now resolving. current pain level "1" also had similar episode last week w/ substernal pain adn radiation. saw ramp flight attendant who wanted to get an outpt test but not yet set up . pt t had been off Plavix for 6 months b/c of a procedure and sts he stayed off of it sine ramp flight attendant told him initially it had been too long since his [place], but when she saw him yest, she told him to resume Plavix. also started self on usual Prednisone and Levaquin yest for exac COPD, and cough Pt complaint: chest pain Onset (ago): hour(s) (1.5) Time: 05:40 Duration: constant, other (improving) Onset: other (occured when got up to go to [place]) Pain Location: substernal Severity: severe Severity scale (1-10): 4 Quality: tightness Pain Radiation: none Improves with: nitroglycerin, rest Worsens with: exertion Context: recent illness, other (ALSO has stent and had been off plavix) Associated symptoms: Reports: diaphoresis, dyspnea, palpitations Treatments prior to arrival chest pain: aspirin, nitroglycerin, oxygen, other ( neb tx, ) - Related Data Home Medications Medication Instructions Recorded Confirmed Albuterol Sulfate [Albuterol 2 puff IH Q4HR PRN 08/23/15 01/30/18 Inhaler] Simvastatin [Zocor] 40 mg PO HS 08/23/15 01/30/18 Tiotropium [Spiriva] 18 mcg IH DAILY 08/23/15 01/30/18 Fluticasone/Salmeterol [Advair 2 puff IN DAILY 01/05/16 01/30/18 250-50 Diskus] BuPROPion SR (12 HR) [Wellbutrin 100 mg PO BID 03/07/16 01/30/18 SR] Citalopram Hydrobromide [Celexa] 20 mg PO DAILY 03/07/16 01/30/18 Tamsulosin [Flomax] 0.4 mg PO DAILY 03/07/16 01/30/18 Tizanidine HCl [Zanaflex] 4 mg PO BID 03/07/16 01/30/18 Cetirizine HCl [All Day Allergy] 10 mg PO DAILY 09/26/16 01/30/18 Ipratropium/Albuterol Neb [Duoneb] 3 ml IH Q6HR 09/26/16 01/30/18 Losartan/Hydrochlorothiazide 1 tab PO DAILY 09/26/16 01/30/18 [Hyzaar 100-12.5 Tablet] Gabapentin [Neurontin] 300 mg PO QID 05/21/17 01/30/18 HYDROcodone/Acet 7.5/325 mg [[place] 1 tab PO Q6H PRN 01/30/18 01/30/18 7.5-325 mg] Omeprazole [PriLOSEC] 40 mg PO DAILY 01/30/18 01/30/18 Previous Rx's Medication Instructions Recorded Carvedilol [Coreg] 6.25 mg PO BIDWM tablet 11/12/17 Allergies Allergy/AdvReac Type Severity Reaction Status Date / Time morphine Allergy Anaphylaxis Verified 01/01/18 09:08 All systems ED: reviewed and negative except as stated. Review of Systems: As Per HPI Cardiovascular: Reports: chest pain, palpitations Respiratory: Reports: dyspnea, wheezes Chest Pain PMH - Past Medical History Medical history: Reports: aortic aneurysm, arthritis, asthma, cancer, COPD, coronary artery disease, GERD, hyperlipidemia, hypertension, malignancy, myocardial infarction, renal disease, TIA, other Surgical history: Reports: orthopedic, other, other Psychiatric history: Reports: anxiety, depression - Social History Smoking Status: Current every day smoker Alcohol use: Reports: none Drug use: Reports: none Physical Exam - General Limitations: no limitations, other (dyspneic, tachypneic, diaphoretic) General appearance: alert, in no apparent distress - Head Head exam: atraumatic, normocephalic - Eye Eye exam: Present: normal appearance, PERRL - ENT ENT exam: normal exam, normal oropharynx, mucous membranes moist - Neck Neck exam: Present: normal inspection, full ROM - Chest Chest inspection: Present: normal inspection, symmetric chest wall rise - Respiratory Respiratory exam: Present: respiratory distress, wheezes, accessory muscle use, prolonged expiratory phase - Cardiovascular Cardiovascular exam: Present: regular rate, normal rhythm, normal heart sounds - Abdominal Exam Abdominal exam: Present: soft, Non-Tender, normal bowel sounds. Absent: distention - Extremities Exam Extremities exam: Present: normal inspection, full ROM. Absent: pedal edema - Back Exam Back exam: Present: normal inspection - Neurological Exam Neurological exam: Present: alert, oriented X3. Absent: motor sensory deficit - Psychiatric Psychiatric exam: Present: normal affect, normal mood - Skin Skin exam: Present: warm, diaphoresis. Absent: rash Course - Reevaluation(s) Reevaluation #1: pt remains pain free. he is a bit tachypneic which islikely his baseline, but gases showed elevated bicarbonate. He uses CPAP at night. I asked him if he would allow us to put that on him now to try to regulate the CO2 a bit. He agreed. Patient is on his oxygen supplementation. Lab work test results were discussed with patient and his family. Cardiology last week had indicated he would need some provocative testing and I do feel as though that is indicated at this time with this new episode of acute angina. Because the patient is pain-free I have not started any anticoagulants but feel as though he should be transferred were cardiology is immediately available. Patient is agreeable to transfer. I spoke with [facility] bed management and Dr. Rocha legal transcriptionist for hospitalist. we disc pt hx and current presentation and He agrees to accept the patient in transfer. Time: 08:25 Vital Signs Temperature 97.5 F L 01/30/18 06:48 Pulse Rate 84 01/30/18 06:48 Respiratory Rate 24 01/30/18 06:48 Blood Pressure 112/78 01/30/18 06:48 O2 Sat by Pulse Oximetry 96 01/30/18 06:48 Temperature 97.5 F L 01/30/18 06:48 Pulse Rate 84 01/30/18 06:48 Respiratory Rate 24 01/30/18 06:48 Blood Pressure 112/78 01/30/18 06:48 O2 Sat by Pulse Oximetry 96 01/30/18 06:48 Oxygen Delivery Oxygen Delivery Nasal Cannula Chest Pain - Differential Diagnosis Likely: unstable angina pectoris, st elevation myocardial infraction - Medical Records Medical records reviewed: Yes I reviewed the patient's medical records. - Lab Data Lab results reviewed: Yes I reviewed the patient's lab results. Result diagrams: 01/30/18 07:20 01/30/18 07:20 Lab Results 01/30/18 01/30/18 01/30/18 Range/Units 07:20 07:20 07:20 WBC (4.3-11.1) K/mcL RBC (4.19-5.50) M/mcL Hgb (12.9-16.9) g/dL Hct (37.5-50.1) % MCV (83.0-100.0) fL MCH (28.0-33.3) pg MCHC (31.6-35.5) g/dL RDW (11.5-14.5) % Plt Count (140-400) K/mcL MPV (9.4-12.4) fL Immature Gran % (0-4) % Seg Neutrophils % % Lymphocytes % % Monocytes % % Eosinophils % % Basophils % % Neutrophils # (1.6-8.9) K/mcL Lymphocytes # (0.6-4.6) K/mcL Monocytes # (0.0-1.3) K/mcL Eosinophils # (0.0-0.6) K/mcL Basophils # (0.0-0.2) K/mcL PT 11.1 (9.4-12.1) Seconds INR 1.0 APTT 26.6 (26.0-36.0) Seconds VBG pH (7.32-7.42) pH Units VBG pCO2 (41-51) mmHg VBG pO2 (25-50) mmHg VBG HCO3 (21-27) mEq/L Sodium (136-145) mEq/L Potassium (3.5-5.1) mEq/L Chloride (98-107) mEq/L Carbon Dioxide (23-29) mEq/L BUN (8-23) mg/dL Creatinine (0.70-1.30) mg/dL Est GFR ( Amer) (> 60) Est GFR (Non-Af Amer) (> 60) BUN/Creatinine Ratio (6-26) Glucose (70-105) mg/dL Calculated Osmolality (280-300) Calcium (8.6-10.3) mg/dL Total Bilirubin 0.5 (0.3-1.0) mg/dL Direct Bilirubin 0.1 (0.0-0.2) mg/dL Indirect Bilirubin 0.4 (0.0-1.2) mg/dL AST 11 L (13-39) Units/L ALT 10 (7-52) Units/L Alkaline Phosphatase 81 (34-104) Units/L Troponin I (< 0.04) ng/mL B-Natriuretic Peptide 25 (Less than 100) pg/mL Serum Total Protein 6.6 (6.4-8.9) g/dL Albumin 3.9 (3.5-5.7) g/dL Globulin 2.7 (2.4-3.5) g/dL Albumin/Globulin Ratio 1.4 (1.1-2.2) 01/30/18 01/30/18 01/30/18 Range/Units 07:20 07:20 07:35 WBC 9.2 (4.3-11.1) K/mcL RBC 4.26 (4.19-5.50) M/mcL Hgb 13.2 (12.9-16.9) g/dL Hct 40.8 (37.5-50.1) % MCV 95.8 (83.0-100.0) fL MCH 31.0 (28.0-33.3) pg MCHC 32.4 (31.6-35.5) g/dL RDW 14.0 (11.5-14.5) % Plt Count 177 (140-400) K/mcL MPV 9.7 (9.4-12.4) fL Immature Gran % 1.0 (0-4) % Seg Neutrophils % 76.6 % Lymphocytes % 13.9 % Monocytes % 8.0 % Eosinophils % 0.3 % Basophils % 0.2 % Neutrophils # 7.0 (1.6-8.9) K/mcL Lymphocytes # 1.3 (0.6-4.6) K/mcL Monocytes # 0.7 (0.0-1.3) K/mcL Eosinophils # 0.0 (0.0-0.6) K/mcL Basophils # 0.0 (0.0-0.2) K/mcL PT (9.4-12.1) Seconds INR APTT (26.0-36.0) Seconds VBG pH 7.34 (7.32-7.42) pH Units VBG pCO2 59 H (41-51) mmHg VBG pO2 29 (25-50) mmHg VBG HCO3 31 H (21-27) mEq/L Sodium 139 (136-145) mEq/L Potassium 4.5 (3.5-5.1) mEq/L Chloride 101 (98-107) mEq/L Carbon Dioxide 32 H (23-29) mEq/L BUN 21 (8-23) mg/dL Creatinine 1.07 (0.70-1.30) mg/dL Est GFR ( Amer) > 60 (> 60) Est GFR (Non-Af Amer) > 60 (> 60) BUN/Creatinine Ratio 20 (6-26) Glucose 102 (70-105) mg/dL Calculated Osmolality 291 (280-300) Calcium 9.8 (8.6-10.3) mg/dL Total Bilirubin (0.3-1.0) mg/dL Direct Bilirubin (0.0-0.2) mg/dL Indirect Bilirubin (0.0-1.2) mg/dL AST (13-39) Units/L ALT (7-52) Units/L Alkaline Phosphatase (34-104) Units/L Troponin I < 0.03 (< 0.04) ng/mL B-Natriuretic Peptide (Less than 100) pg/mL Serum Total Protein (6.4-8.9) g/dL Albumin (3.5-5.7) g/dL Globulin (2.4-3.5) g/dL Albumin/Globulin Ratio (1.1-2.2) - Radiology Data Radiology results reviewed: Yes I reviewed the patient's radiology results. - EKG Data EKG attestation: Yes I reviewed and interpreted this EKG. EKG shows normal: sinus rhythm Rate: normal [place]/QRS: RBBB Heart Score - Score History: Highly Suspicious EKG: Non Specific repolarisation Disturbance Age: Greater than 65 Risk Factors: Equal/Greater than 3 risk factor or history of atherosclerotic disease
[2018-01-30] MEDS ORDERED: Aspirin 81 MG TAB.CHEW PO ONE (07:14)
[2018-01-30 07:27] LABS: Basophils % 0.2 %; Eosinophils % 0.3 %; Hematocrit 40.8 % (37.5-50.1); Hemoglobin 13.2 g/dL (12.9-16.9); Lymphocytes # 1.3 K/mcL (0.6-4.6); Lymphocytes % 13.9 %; Mean Corpuscular HGB Conc 32.4 g/dL (31.6-35.5); Mean Corpuscular Volume 95.8 fL (83.0-100.0); Mean Platelet Volume 9.7 fL (9.4-12.4); Monocytes # 0.7 K/mcL (0.0-1.3); Platelet Count 177 K/mcL (140-400); Red Blood Count 4.26 M/mcL (4.19-5.50); Segmented Neutrophils % 76.6 %
[2018-01-30 07:32] LABS: Prothrombin Time 11.1 Seconds (9.4-12.1)
[2018-01-30 07:35] LABS: Activated Partial Thrombo Time 26.6 Seconds (26.0-36.0)
[2018-01-30 07:42] LABS: VBG HCO3 31 mEq/L (21-27); VBG PCO2 59 mmHg (41-51); VBG PH 7.34 pH Units (7.32-7.42); VBG PO2 29 mmHg (25-50)
[2018-01-30 07:49] LABS: Albumin 3.9 g/dL (3.5-5.7); Albumin/Globulin Ratio 1.4 (1.1-2.2); BUN/Creatinine Ratio 20 (6-26); Bilirubin,Direct 0.1 mg/dL (0.0-0.2); Bilirubin,Indirect 0.4 mg/dL (0.0-1.2); Bilirubin,Total 0.5 mg/dL (0.3-1.0); Blood Urea Nitrogen 21 mg/dL (8-23); Calcium 9.8 mg/dL (8.6-10.3); Carbon Dioxide 32 mEq/L (23-29); Chloride 101 mEq/L (98-107); Globulin 2.7 g/dL (2.4-3.5); Glucose 102 mg/dL (70-105); Osmolality,Calculated 291 (280-300); Potassium 4.5 mEq/L (3.5-5.1); Sodium 139 mEq/L (136-145); Total Protein 6.6 g/dL (6.4-8.9); eGFR For African Americans > 60 (> 60); eGFR For Non-African Americans > 60 (> 60)
[2018-01-30 07:53] LABS: Troponin I < 0.03 ng/mL (< 0.04)
[2018-01-30] MEDS ORDERED: Isosorbide MONOnitrate (24 HR) 30 MG TAB.ER.24H PO SCH (11:00)
[2018-01-30] MEDS ORDERED: Naloxone 0.4 MG/ML INJ IVP PRN (11:25)
[2018-01-30] MEDS ORDERED: Nitroglycerin 0.4 MG TAB.SUBL SL PRN (15:16)
[2018-01-30] MEDS ORDERED: Nitroglycerin 0.4 MG TAB.SUBL SL ONE (15:22)
[2018-01-30] MEDS: Ipratropium/Albuterol Neb 3 ML IH SCH ×2 (15:53→22:08)
[2018-01-30] MEDS ORDERED: *HR* HYDROcodone/Acet 7.5/325 mg TABLET PO PRN (16:43)
[2018-01-30] MEDS: Aspirin 81 MG TAB.CHEW PO SCH (17:01)
[2018-01-30] MEDS: hydroCHLOROthiazide 25 MG TABLET PO SCH (17:01)
[2018-01-30] MEDS: Loratadine 10 MG TABLET PO SCH (17:02)
[2018-01-30] MEDS: Isosorbide MONOnitrate (24 HR) 30 MG TAB.ER.24H PO SCH (17:02)
[2018-01-30] MEDS: levoFLOXacin 500 MG TABLET PO SCH (17:07)
--- NOTE | 2018-01-30 19:23 | Internal Med History&Physical ---
Date of Encounter: 01/30/18 Time of Encounter: 17:00 Assessment and Plan (1) Chest pain Current visit: Yes Status: Acute We will obtain serial enzymes and EKGs to make sure he has had no acute myocardial infarction. Assuming this to be the case, we have requested that he undergo a sestamibi myocardial perfusion scan to evaluate for the cause of his chest pain. Should this be positive, he would require a cardiology consultation for consideration of left heart catheterization. I spent well in excess of a half an hour of administrative time, trying to coordinate multiple attempts to obtain a stress test for this patient. Qualifiers: Chest pain type: unspecified Qualified Code(s): R07.9 - Chest pain, unspecified (2) COPD exacerbation Current visit: Yes Status: Acute Per history from patient. We will continue his Levaquin and oral steroids as per his PCP plan. (3) DVT prophylaxis Current visit: No Status: Acute We will use heparin subcutaneous. (4) Sleep apnea Current visit: No Status: Chronic We will continue his home CPAP and home settings (12 cm water) with oxygen 2 L/ m by nasal cannula, included. Qualifiers: Sleep apnea type: central sleep apnea associated with underlying condition Qualified Code(s): G47.37 - Central sleep apnea in conditions classified elsewhere (5) Renal cancer Current visit: No Status: Acute See comments in history of present illness, above. Qualifiers: Laterality: unspecified laterality Qualified Code(s): C64.9 - Malignant neoplasm of unspecified kidney, except renal pelvis (6) Coronary artery disease Current visit: No Status: Chronic CT "chest pain, " above. Qualifiers: Coronary Disease-Associated Artery/Lesion type: [place] artery [place] vs. transplanted heart: [place] heart Associated angina: without angina Qualified Code(s): I25.10 - Atherosclerotic heart disease of [place] coronary artery without angina pectoris (7) Hypertension Current visit: No Status: Chronic Clinically stable. We will continue home regimen and follow. Qualifiers: Hypertension type: essential hypertension Qualified Code(s): I10 - Essential (primary) hypertension (8) Renal insufficiency Current visit: No Status: Acute Mild prior current labs. (9) Tobacco use Current visit: No Status: Chronic Will resume his nicotine patch after stress testing is completed. (10) Hyperlipidemia Current visit: Yes Status: Acute Qualifiers: Hyperlipidemia type: unspecified Qualified Code(s): E78.5 - Hyperlipidemia , unspecified Internal Medicine - H&P: HPI Admitted From: Home Plans for Post Hospital Care: Home History of present illness: Mr. Partida is a 72 year old male who was in his usual state of health until about 2 weeks ago when he developed rather severe chest pain which responded to nitroglycerin. He knows of no associated symptoms including no lightheadedness , dizziness, nausea, pleuritic symptoms, etc. He had no shortness of breath and was not diaphoretic. He does note that this pain radiated to both arms, as far down as his elbows. However, yesterday he developed increased cough and shortness of breath. For this reason, he began 40 mg daily of prednisone and Levaquin, as per instructions from his primary care physician. Early this morning, he awakened out of bed and was going to go to the restroom because of a desire to defecate. He was unable to go because his was in the restroom. He sat at the bedside for several minutes and developed rather severe chest pain in the midsternal area. This did not radiate to throat, back , arms, abdomen, etc. He became markedly diaphoretic. He had transient nausea but the chest pain persisted much longer. Because it did not respond to 3 nitroglycerin sublingually, he was brought by his to the emergency room. It has been well over a year since his last stress test. He notes that he stopped taking aspirin and Plavix in March 2017 when he was having a spinal injection and was told to discontinue that. He has not had aspirin with the exception as needed for a fever or headache, etc. He has a history of 4 stents for coronary insufficiency but is never had a bypass and has had no known heart attack. He has a 55 packher smoking history and continues to smoke 1-2 cigarettes per day and he is trying to quit by using a nicotine patch, 14 mg, daily. He knows of no anemia or recent other symptoms or illnesses which would have exacerbated his myocardial oxygen demand. Upon arriving to the emergency room, his chest pain resolved and he was placed on topical nitrates and given oxygen therapy. Past medical history is as noted below and significant for nightly CPAP for sleep apnea. He also uses oxygen as a bleedin for this at home at 2 L by nasal cannula per minute. He also has a history of kidney cancer with multiple procedures for same. He states that at first this was on his right kidney and these had partial nephrectomy. However, he recently has a lesion on his left kidney and there closely following this. He is unsure as to the type of kidney cancer but it sounds as if this might be renal cell??? He is followed by Dr. Chairez, a urologist, as well as an oncologist for this. He is retired and is for over 55 years. He has never been a drinker. Patient has no complaint of chest discomfort, dyspnea, orthopnea, palpitations, nausea or vomiting, constipation or diarrhea, other changes in bowel habits, difficulty with urination, rash or itching, or other new complaints, except as mentioned above. Review of systems is otherwise unremarkable. Past Med Surg Social Fam HX - Past Medical History Medical history: aortic aneurysm, arthritis, asthma, cancer, COPD, coronary artery disease, GERD, hyperlipidemia, hypertension, malignancy, myocardial infarction, renal disease, TIA, other Psychiatric history: anxiety, depression - Past Surgical History Surgical History: orthopedic, other, other - Social History Smoking Status: Current every day smoker Smokeless Tobacco Status: Yes Alcohol use: none Drug use: none - Family History Father Adopted: Yes Family Member Ethnicity: Non- Living Status: Hx Family Cardiac Disorders: Yes (self, brother,mother) Hx Family Respiratory Disorders: Yes (self, father) Hx Family Cancer: Yes (self,father,brother) Hx Family GI Disorders: Yes (self) Hx Family Endocrine Disorder: No Hx Family Neuromuscular Disorders: No Hx Family Neurologic Disorders: Yes (self,mother) Hx Family HEENT Disorders: No Hx Family Autoimmune Disorders: No Internal Medicine - H&P: Meds Albuterol Sulfate [Albuterol Inhaler] 2 puff IH Q4HR PRN 08/23/15 [History] Simvastatin [Zocor] 40 mg PO HS 08/23/15 [History] Tiotropium [Spiriva] 18 mcg IH DAILY 08/23/15 [History] Fluticasone/Salmeterol [Advair 250-50 Diskus] 2 puff IN DAILY 01/05/16 [History] BuPROPion SR (12 HR) [Wellbutrin SR] 100 mg PO BID 03/07/16 [History] Citalopram Hydrobromide [Celexa] 20 mg PO DAILY 03/07/16 [History] Tamsulosin [Flomax] 0.4 mg PO DAILY 03/07/16 [History] Tizanidine HCl [Zanaflex] 4 mg PO BID 03/07/16 [History] Cetirizine HCl [All Day Allergy] 10 mg PO DAILY 09/26/16 [History] Ipratropium/Albuterol Neb [Duoneb] 3 ml IH Q6HR 09/26/16 [History] Losartan/Hydrochlorothiazide [Hyzaar 100-12.5 Tablet] 1 tab PO DAILY 09/26/16 [ History] Gabapentin [Neurontin] 300 mg PO QID 05/21/17 [History] Carvedilol [Coreg] 6.25 mg PO BIDWM tablet 11/12/17 [Rx] HYDROcodone/Acet 7.5/325 mg [[place] 7.5-325 mg] 1 tab PO Q6H PRN 01/30/18 [ History] Omeprazole [PriLOSEC] 40 mg PO DAILY 01/30/18 [History] 3 Allergy/AdvReac Type Severity Reaction Status Date / Time morphine Allergy Anaphylaxis Verified 01/01/18 09:08 All Systems PM: A 10-system review of systems was performed and is negative for pertinent findings except as documented above in the HPI. - Constitutional Vitals: Temp Pulse Resp BP Pulse Ox 98 F 68 18 133/74 92 01/30/18 15:20 01/30/18 15:20 01/30/18 15:20 01/30/18 15:20 01/30/18 15:20 Exam: Examinatioin: (Except as mentioned above): General: In no apparent distress, alert and oriented 3. Head: Atraumatic and normocephalic. Eyes: Extraocular muscles are intact, pupils equal round and reactive to light and accommodation. Sclerae anicteric. Ears: External ears are normal to inspection and hearing is grossly normal. Nose: Patent without lesion noted. Mouth: No intraoral lesions seen. Full dentures are present. Neck: Supple with trachea midline. There is no thyromegaly or adenopathy and carotids are 2+ without bruit heard. Respiratory: No use of accessory muscles. Lungs are clear throughout. Normal airflow. No chest wall tenderness. Cardiovascular: Regular rate and rhythm without murmur appreciated. Abdomen: Bowel sounds are normal. No hepatosplenomegaly masses or tenderness. Obese and therefore difficult to palpate deeply. Extremities: No cyanosis clubbing or edema. Neurological: A and O 3. Cranial nerves II through XII are intact. No focal deficits and no abnormal movements or postures. Skin: Warm and non-diaphoretic with no lesions noted. Breasts, pelvic and rectal: Not examined. Internal Med - H&P Results - Labs CBC & Chem 7: 01/30/18 07:20 01/30/18 07:20 Labs: Cardiac Enzymes 01/30/18 Range/Units 13:30 Troponin I < 0.03 (< 0.04) ng/mL - VTE Reasons for not Prescribing Prophylaxis: Treatment not Indicated - Low risk for VTE
[2018-01-30] MEDS: BuPROPion SR (12 HR) 100 MG TABLET PO SCH (20:25)
[2018-01-30] MEDS: predniSONE 20 MG TABLET PO SCH (20:25)
[2018-01-31] MEDS: Ipratropium/Albuterol Neb 3 ML IH SCH ×2 (04:13→11:51)
[2018-01-31] MEDS ORDERED: Regadenoson 0.4 MG/5 ML SYRINGE IVP ONE (06:26)
--- NOTE | 2018-01-31 06:59 | Electrocardiograph Report ---
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
[2018-01-31] MEDS ORDERED: Isosorbide MONOnitrate (24 HR) 30 MG TAB.ER.24H PO SCH (09:00)
[2018-01-31] MEDS ORDERED: NON-FORMULARY MEDICATION 1 EACH EACH (Losartan/Hydrochlorothiazide [Hyzaar 100-12.5 Tablet PO SCH (09:00)
[2018-01-31] MEDS ORDERED: hydroCHLOROthiazide 25 MG TABLET PO SCH (09:00)
[2018-01-31] MEDS ORDERED: Aspirin 81 MG TAB.CHEW PO SCH ×2 (09:00)
[2018-01-31] MEDS ORDERED: Loratadine 10 MG TABLET PO SCH (09:00)
[2018-01-31] MEDS ORDERED: Tiotropium 18 MCG inhalation IH SCH (10:00)
[2018-01-31] MEDS ORDERED: Budesonide/Formoterol 80/4.5 MDI IH SCH (10:00)
[2018-01-31] MEDS: Aspirin 81 MG TAB.CHEW PO SCH (11:47)
[2018-01-31] MEDS: BuPROPion SR (12 HR) 100 MG TABLET PO SCH (11:47)
[2018-01-31] MEDS: predniSONE 20 MG TABLET PO SCH (11:48)
[2018-01-31] MEDS: hydroCHLOROthiazide 25 MG TABLET PO SCH (11:48)
[2018-01-31] MEDS: Isosorbide MONOnitrate (24 HR) 30 MG TAB.ER.24H PO SCH (11:48)
[2018-01-31] MEDS: levoFLOXacin 500 MG TABLET PO SCH (11:48)
[2018-01-31] MEDS: Loratadine 10 MG TABLET PO SCH (11:49)
[2018-01-31 11:51] VITALS: BP 153/77
--- NOTE | 2018-01-31 14:06 | Internal Med Progress Note ---
Date of Encounter: 01/31/18 Time of Encounter: 14:04 - Assessment and plan (1) Coronary artery disease Current Visit: No Status: Chronic Assessment and plan: Patient has been doing well. Patient denies any further chest discomforts or palpitations since his admission. Vital signs stable. environmental monitoring specialist continued to show sinus rhythm without ectopy. Patient had stress test performed this morning with reports that he is asymptomatic. Awaiting results of stress test from cardiology with recommendations. Qualifiers: Coronary Disease-Associated Artery/Lesion type: [place] artery [place] vs. transplanted heart: [place] heart Associated angina: with stable angina Qualified Code(s): I25.118 - Atherosclerotic heart disease of [place] coronary artery with other forms of angina pectoris (2) COPD (chronic obstructive pulmonary disease) Current Visit: No Status: Acute Assessment and plan: No acute issues. Patient's lungs remained clear to auscultation. No reports of dyspnea. We will continue with current medications and bronchodilators. Qualifiers: COPD type: COPD with acute exacerbation Qualified Code(s): J44.1 - Chronic obstructive pulmonary disease with (acute) exacerbation (3) Hypertension Current Visit: No Status: Chronic Assessment and plan: Vital signs are stable. We will continue with current medications. Qualifiers: Hypertension type: essential hypertension Qualified Code(s): I10 - Essential (primary) hypertension - Time Spent With Patient less than 15 minutes - Subjective Interval history: Patient appears relaxed and denies any current chest discomforts or dyspnea. Patient denies any palpitations. Patient has just returned from have not stress test performed in states he experienced no symptoms of chest pain or palpitations during the stress test. - Constitutional Vitals: Temp Pulse Resp BP Pulse Ox 97.7 F 66 16 153/77 92 01/31/18 11:49 01/31/18 11:49 01/31/18 11:49 01/31/18 11:49 01/31/18 11:49 General appearance: Present: A&O X 3, pleasant - Head Head exam: Present: atraumatic, normocephalic - Eye Eye exam: Present: PERRL, conjuntiva pink, sclera anicteric Pupils: Present: PERRL - Neck Neck exam general surgery: Present: supple, trachea midline. Absent: lymphadenopathy - Respiratory Respiratory exam: Present: CTAB. Absent: accessory muscle use, rales, rhonchi, wheezes - Cardiovascular Cardiovascular exam: Present: diastolic murmur, RRR, +S1, +S2, systolic murmur. Absent: gallop, rubs Additional comments: Noted systolic murmur 3/6 LSB - GI/Abdominal GI/Abdominal exam: Present: normal bowel sounds, soft, no peritoneal signs. Absent: distended, tenderness - Extremities Exam Extremities exam: Present: warm, radial pulses palpable and symmetrical. Absent : calf tenderness, cyanotic, pedal edema - Neurological Exam Neurological exam: Present: CN II-XII intact, oriented X3, no focal deficits. Absent: pronater drift, facial droop, speech deficit - Skin Skin exam: Present: dry, intact Internal Medicine: Result - Labs CBC & Chem 7: 01/30/18 07:20 01/30/18 07:20 Labs: Cardiac Enzymes 01/30/18 01/30/18 Range/Units 13:30 19:30 Troponin I < 0.03 < 0.03 (< 0.04) ng/mL - ABG Interpretation ABG results: PT/INR, D-dimer PT 11.1 Seconds (9.4-12.1) 01/30/18 07:20 - VTE Reasons for not Prescribing Prophylaxis: Treatment not Indicated - Low risk for VTE Consult Discharge Plan - Plan Referrals: Danis Figueroa MD [Primary Care Provider] -
--- NOTE | 2018-01-31 15:42 | Discharge Summary ---
- NOTES TO OUTPATIENT PROVIDER Notes to Outpatient Provider: Nuclear pharmacologic stress test was negative for ischemia. Fixed septal defect. He apparently has cardiology appointment and will advised that he continue to treat chest pain with nitroglycerin but feel current episode was noncardiac. Date of Encounter: 01/31/18 Time of Encounter: 15:40 - Discharge Diagnosis (1) Chest pain Priority: Primary Status: Acute Comments: [place] to be noncardiac based on history and physical, EKG, and nuclear testing. Qualifiers: Chest pain type: unspecified Qualified Code(s): R07.9 - Chest pain, unspecified (2) COPD exacerbation Priority: Secondary Status: Acute (3) Sleep apnea Priority: Secondary Status: Chronic Qualifiers: Sleep apnea type: central sleep apnea associated with underlying condition Qualified Code(s): G47.37 - Central sleep apnea in conditions classified elsewhere (4) Renal cancer Priority: Secondary Status: Acute Qualifiers: Laterality: unspecified laterality Qualified Code(s): C64.9 - Malignant neoplasm of unspecified kidney, except renal pelvis (5) Coronary artery disease Priority: Secondary Status: Chronic Qualifiers: Coronary Disease-Associated Artery/Lesion type: [place] artery [place] vs. transplanted heart: [place] heart Associated angina: with stable angina Qualified Code(s): I25.118 - Atherosclerotic heart disease of [place] coronary artery with other forms of angina pectoris (6) Hypertension Priority: Secondary Status: Chronic Qualifiers: Hypertension type: essential hypertension Qualified Code(s): I10 - Essential (primary) hypertension (7) Renal insufficiency Priority: Secondary Status: Acute (8) Tobacco use Priority: Secondary Status: Chronic Comments: He was advised to return to 14 mg daily patch of nicotine, and to totally quit smoking! (9) Hyperlipidemia Priority: Secondary Status: Acute Qualifiers: Hyperlipidemia type: unspecified Qualified Code(s): E78.5 - Hyperlipidemia , unspecified Hospital course: Mr. Partida is a 72 year old male who presented with atypical chest pain. The pain was retrosternal, nonradiating, was associated with profuse diaphoresis. However, no fever, dyspnea, lightheadedness, palpitations, etc. He was admitted through the emergency department and serial EKGs and enzymes were unremarkable. He underwent pharmacologic nuclear stress testing on the morning of discharge and this was found to be negative for ischemia but had a fixed septal defect with a suspicion of old injury. The day before his admission, had COPD exacerbation, per him, and as is his standard structure, he began Levaquin and 40 mg daily of prednisone, per previous prescription by his primary care physician. 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 - Time Spent with Patient Total time spent providing and/or coordinating discharge services: - Discharge Medications Home Medications: Albuterol Sulfate [Albuterol Inhaler] 2 puff IH Q4HR PRN 08/23/15 [History] Simvastatin [Zocor] 40 mg PO HS 08/23/15 [History] Tiotropium [Spiriva] 18 mcg IH DAILY 08/23/15 [History] Fluticasone/Salmeterol [Advair 250-50 Diskus] 2 puff IN DAILY 01/05/16 [History] BuPROPion SR (12 HR) [Wellbutrin SR] 100 mg PO BID 03/07/16 [History] Citalopram Hydrobromide [Celexa] 20 mg PO DAILY 03/07/16 [History] Tamsulosin [Flomax] 0.4 mg PO DAILY 03/07/16 [History] Tizanidine HCl [Zanaflex] 4 mg PO BID 03/07/16 [History] Cetirizine HCl [All Day Allergy] 10 mg PO DAILY 09/26/16 [History] Ipratropium/Albuterol Neb [Duoneb] 3 ml IH Q6HR 09/26/16 [History] Losartan/Hydrochlorothiazide [Hyzaar 100-12.5 Tablet] 1 tab PO DAILY 09/26/16 [ History] Gabapentin [Neurontin] 300 mg PO QID 05/21/17 [History] Carvedilol [Coreg] 6.25 mg PO BIDWM tablet 11/12/17 [Rx] HYDROcodone/Acet 7.5/325 mg [[place] 7.5-325 mg] 1 tab PO Q6H PRN 01/30/18 [ History] Omeprazole [PriLOSEC] 40 mg PO DAILY 01/30/18 [History] Allergies/Adverse Reactions: 3 Allergy/AdvReac Type Severity Reaction Status Date / Time morphine Allergy Anaphylaxis Verified 01/01/18 09:08 Date of admission: 01/30/18 11:11 Primary care physician: Danis Figueroa MD Consults: 01/30/18 12:04 Consult to Sales Service Executive [CONS] Routine Reason for SW Consult: discharge planning Discharging clinician: Yuan Pike Anticipated date of discharge: 01/31/18 - Constitutional Vitals: Temp Pulse Resp BP Pulse Ox 97.7 F 66 16 153/77 92 01/31/18 11:49 01/31/18 11:49 01/31/18 11:49 01/31/18 11:49 01/31/18 11:49 General appearance: Present: A&O X 3, pleasant Exam: Examinatioin: (Except as mentioned above): General: In no apparent distress. Alert and oriented 3. Nondiaphoretic. Head: Atraumatic and normocephalic. Respiratory: No use of accessory muscles. Lungs with a few sonorous rhonchi, diffusely. Normal airflow. Cardiovascular: Regular rate and rhythm without murmur appreciated. Abdomen: Bowel sounds are normal. No hepatosplenomegaly mass or tenderness appreciated. Obese and therefore difficult to palpate deeply. Extremities: No cyanosis clubbing or edema. Skin: Warm and non-diaphoretic with no new lesions noted. - Patient Status Disposition: Home, Self-Care Condition: Fair Overall status at discharge: patient is back to baseline - Discharge Instructions Instructions: Chest Pain (DC) Follow Up With: Danis Figueroa MD [Primary Care Provider] - 02/06/18 1:15 pm - VTE Reasons for not Prescribing Prophylaxis: Treatment not Indicated - Low risk for VTE
--- NOTE | 2018-02-01 14:46 | Electrocardiograph Report ---
[address] [place], [place] [address] Test Date: 2018-01-30 Pat Name: Tree Partida Department: 2003 Room: 118 Gender: M Negative Developer: : 1945 Requested By: Yuan Pike Order Number: [id number] Reading MD: Pawel Romo DO Measurements Intervals [place] Rate: 67 P: 61 CO: 172 QRS: -76 QRSD: 121 T: -18 QT: 394 QTc: 409 Interpretive Statements SINUS RHYTHM MARKED LEFT AXIS DEVIATION RIGHT BUNDLE BRANCH BLOCK POSSIBLE ANTERIOR MYOCARDIAL INFARCTION, OF INDETERMINATE AGE Electronically Signed On 02-01-2018 14:44:38 EDT by Pawel Romo DO
== END 2018-01-31 16:40 | disposition home or self-care (01) ==
LOC: INPGRE 06:42 → EMEROOGRE 06:42 → INPGRE 11:23